=== PATIENT | female | born 1990 | race Caucasian/White ===

== ENCOUNTER 2017-01-19 10:30 | Emergency (ER) | payer OTHER | END 2017-01-19 11:30 | disposition home or self-care (01) | LOC: ER 10:30 | DX: S67.197A Crushing injury of left little finger, initial encounter (principal); S62.637A Displaced fracture of distal phalanx of left little finger, initial encounter for closed fracture; F41.0 Panic disorder [episodic paroxysmal anxiety]; F17.210 Nicotine dependence, cigarettes, uncomplicated; Z88.5 Allergy status to narcotic agent; Z98.51 Tubal ligation status; W23.0XXA Caught, crushed, jammed, or pinched between moving objects, initial encounter ==

== ENCOUNTER 2017-01-23 13:35 | Emergency (ER) | payer OTHER | END 2017-01-23 13:45 | disposition home or self-care (01) | LOC: ER 13:35 | DX: L25.9 Unspecified contact dermatitis, unspecified cause (principal); F41.0 Panic disorder [episodic paroxysmal anxiety]; F17.210 Nicotine dependence, cigarettes, uncomplicated; Z98.51 Tubal ligation status; Z87.442 Personal history of urinary calculi; Z88.5 Allergy status to narcotic agent ==

== ENCOUNTER 2017-02-17 11:04 | Emergency (ER) | payer OTHER | END 2017-02-17 12:46 | disposition home or self-care (01) | LOC: ER 11:04 | DX: R10.13 Epigastric pain (principal); R11.0 Nausea; F41.9 Anxiety disorder, unspecified; F17.210 Nicotine dependence, cigarettes, uncomplicated; Z87.442 Personal history of urinary calculi; Z88.5 Allergy status to narcotic agent; Z98.51 Tubal ligation status ==